=== PATIENT | female | born 1980 | race African-American/Black ===

== ENCOUNTER 2017-04-21 10:32 | Emergency (ER) | payer MEDICAID ==
[~2017-04-21] VITALS: Ht 162.6 cm; Wt 101.6 kg
[~2017-04-21 10:32] MED LIST: ALBUTEROL SULF8.5 GM INH; AZITHROMYCIN250 MG ORAL; BACTRIM DS TAB1 EAC1 ORAL; CEPHALEXIN500 MG ORAL; CYCLOBENZAPRINE10 MG ORAL; IBUPROFEN600 MG ORAL; NKM; NORCO 5-325 TA1 EACH ORAL; PROMETH-CODEIN 65 ML PO; PROMETHAZINE-C118 M1 ORAL; PSEUDOEPHEDRINE60 MG PO
[2017-04-21] MEDS ORDERED: NKM (10:47)
[2017-04-21 10:57] VITALS: BP 117/82
[2017-04-21] MEDS ORDERED: Ketorolac 30mg Inj IM ONE (11:00)
[2017-04-21] MEDS ORDERED: Cyclobenzaprine 10mg Tab ORAL ONE (11:00)
[2017-04-21 11:56] VITALS: BP 114/85
[2017-04-21] MEDS ORDERED: Norco 5mg/325mg tab ORAL ONE (12:00)
[2017-04-21] MEDS ORDERED: CYCLOBENZAPRINE10 MG ORAL (12:01)
[2017-04-21] MEDS ORDERED: NORCO 5-325 TA1 EACH ORAL (12:01)
[2017-04-21] MEDS ORDERED: IBUPROFEN600 MG ORAL (12:01)
[2017-04-21 12:13] VITALS: BP 114/85
--- NOTE | 2017-04-21 19:58 | Emergency Room Report ---
History of Present Illness General Chief Complaint: Neck Pain Source: Patient Present Illness HPI 37-year-old female presents ED complaining of neck pain and shoulder pain. States symptoms started 2 days ago. Notes pain to the left side of the neck radiating through the shoulder and her left shoulder blade. Pain is an 8/10, throbbing, nonradiating. Denies recent trauma but states that she often lifts heavy patients at work. No other aggravating relieving factors. Denies any other associated symptoms Allergies: Coded Allergies: No Known Allergies (Unverified , 07/12/14) Patient History Past Medical History: none Past Surgical History: none Pertinent Family History: none Social History: Denies: alcohol use, drug use, smoking Last Menstrual Period: "About 11 years." Has not had work-up. Now: No Immunizations: UTD Reviewed Nursing Documentation: PMH: Agreed, PSxH: Agreed Nursing Documentation-PMH Past Medical History: No Stated History Hx Cardiac Problems: No - NO MENSES FOR 11 YRS. NO WORK-UP DONE. Review of Systems All Other Systems: negative except mentioned in HPI Physical Exam Vital Signs Date Time Temp Pulse Resp B/P Pulse Ox O2 Delivery O2 Flow Rate FiO2 04/21/17 10:42 98.8 80 15 114/81 99 Room Air Sp02 EP Interpretation: reviewed, normal General Appearance: no apparent distress, alert, GCS 15, non-toxic, obese Head: normocephalic Eyes: bilateral eye PERRL, bilateral eye normal inspection ENT: hearing grossly normal, normal pharynx, no angioedema, normal voice Neck: no bony tend, tender lateral Respiratory: normal inspection Cardiovascular #1: normal inspection Gastrointestinal: normal inspection Rectal: deferred Genitourinary: no CVA tenderness Musculoskeletal: back normal, gait/station normal, normal range of motion, non- tender Neurologic: alert, oriented x3, responsive, motor strength/tone normal, sensory intact, speech normal Psychiatric: normal inspection Skin: normal inspection Lymphatic: normal inspection Medical Decision Making Diagnostic Impression: Primary Impression: Neck muscle strain Qualified Codes: S16.1XXA - Strain of muscle, fascia and tendon at neck level , initial encounter ER Course Hospital Course 37-year-old female presents ED complaining of left-sided neck pain and back pain. No trauma Differential diagnoses include: neck strain, shoulder strain, shoulder injury Clinical course Patient placed on stretcher. After initial history, physical exam reveals an obese female in no acute distress. There is no midline neck tenderness. There is some left-sided tenderness to the neck. Also pain noted behind the left shoulder blade. Full range of motion noted in the shoulder. I ordered toradol and flexeril and norco for pain. Upon reassessment patient states pain has improved. Diagnosis - neck muscle strain Stable and discharged to home with prescription for Motrin, [place], Flexeril. Followup with PMD. Return to ED if symptoms recur or worsen Last Vital Signs Date Time Temp Pulse Resp B/P Pulse Ox O2 Delivery O2 Flow Rate FiO2 04/21/17 12:14 98.6 04/21/17 12:13 81 18 114/85 98 Room Air Status: improved Disposition: HOME, SELF-CARE Condition: Stable Scripts Hydrocodone Bit/Acetaminophen 5-325* (NORCO 5-325*) 1 Each Tablet 1 TAB ORAL Q6H Y for For Pain, #10 TAB 0 Refills Prov: WIL SIMMONS M.D. 04/21/17 Cyclobenzaprine Hcl* (FLEXERIL*) 10 Mg Tablet 10 MG ORAL THREE TIMES A DAY, #20 TAB Prov: WIL SIMMONS M.D. 04/21/17 Ibuprofen* (MOTRIN*) 600 Mg Tablet 600 MG ORAL Q8H Y for For Pain, #30 TAB 0 Refills Prov: WIL SIMMONS M.D. 04/21/17 Departure Forms: Return to Work Return to Work Date: Apr 23, 2017 Work Restrictions: No Heavy Lifting Patient Instructions: Cervical Sprain, [id number] WIL SIMMONS M.D. Apr 21, 2017 19:58
== END 2017-04-21 12:14 | disposition home or self-care (01) ==
LOC: EMR 10:53
DX: S16.1XXA Strain of muscle, fascia and tendon at neck level, initial encounter (principal); X58.XXXA Exposure to other specified factors, initial encounter; Y92.9 Unspecified place or not applicable
CPT/HCPCS: 96372; 99284; J1885

== ENCOUNTER 2017-06-22 15:42 | Emergency (ER) | payer MEDICAID ==
[~2017-06-22] VITALS: Ht 162.6 cm; Wt 102.1 kg
[2017-06-22] MEDS ORDERED: KEFLEX500 MG ORAL (16:07)
[2017-06-22] MEDS ORDERED: BENADRYL25 M3 PO (16:07)
--- NOTE | 2017-06-22 16:08 | Emergency Room Report ---
History of Present Illness General Chief Complaint: Headache Source: Patient Present Illness [facility] This is a 37-year-old female who presented after increased headache. Patient gradual onset of symptoms. Patient reports having intermittent headaches on a regular basis. Patient denied any fever. She reports having some increased swelling to her right eye. She denies any fever. She denies any nasal discharge. The patient not noted to be diabetic. She denies any neck stiffness. She denied visual changes flashing lights or floaters. Allergies: Coded Allergies: No Known Allergies (Unverified , 07/12/14) Patient History Past Medical History: see triage record Reviewed Nursing Documentation: PMH: Agreed, PSxH: Agreed Nursing Documentation-PMH Past Medical History: No History, Except For Hx Cardiac Problems: No Hx Hypertension: No Hx Pacemaker: No Hx Asthma: No Hx COPD: No Hx Diabetes: No Hx Cancer: No Hx Gastrointestinal Problems: No Hx Dialysis: No History Of Psychiatric Problem: No Hx Neurological Problems: No Hx Cerebrovascular Accident: No Hx Seizures: No Review of Systems All Other Systems: negative except mentioned in HPI Physical Exam Vital Signs Date Time Temp Pulse Resp B/P (MAP) Pulse Ox O2 Delivery O2 Flow Rate FiO2 06/22/17 15:47 98.2 89 16 128/81 98 Room Air General Appearance: well appearing, no apparent distress, alert, GCS 15 Head: normocephalic, atraumatic Eyes: bilateral eye PERRL, bilateral eye other - upper right lid swelling, slight erythema, no purulent drainage ENT: hearing grossly normal, normal voice Neck: full range of motion, supple Respiratory: no respiratory distress, speaking full sentences Musculoskeletal: no calf tenderness Neurologic: normal gait Psychiatric: mood/affect normal Skin: no rash Medical Decision Making Diagnostic Impression: Primary Impression: Stye external ER Course Patient presented for eye pain. Differential diagnoses included was not limited to periorbital cellulitis, sinusitis, stye, tumor, glaucoma among others. Patient's benign exam and does not appear to require any further imaging or laboratory testing at this time. The patient appears to have a stye. Patient will be treated with oral antibiotics. Patient was advised followup with eye doctor in the next one to 2 days for recheck. Last Vital Signs Date Time Temp Pulse Resp B/P (MAP) Pulse Ox O2 Delivery O2 Flow Rate FiO2 06/22/17 15:47 98.2 89 16 128/81 98 Room Air Status: improved Disposition: HOME, SELF-CARE Condition: Stable Scripts Diphenhydramine HCl (Benadryl) 25 Mg Capsule 25 MG PO Q6HR, #20 CAP Prov: Wilman Rodgers 06/22/17 Cephalexin* (KEFLEX*) 500 Mg Capsule 500 MG ORAL Q6H, #28 CAP 0 Refills Prov: Wilman Rodgers 06/22/17 Referrals: NOT CHOSEN [facility]/,REFERRING (PCP) Wilman Rodgers Jun 22, 2017 16:08
[2017-06-22 16:25] VITALS: BP 120/85
== END 2017-06-22 16:25 | disposition home or self-care (01) ==
LOC: EMR 16:01
DX: H00.011 Hordeolum externum right upper eyelid (principal); R51 Headache
CPT/HCPCS: 99283

== ENCOUNTER 2018-07-06 20:30 | Emergency (ER) | payer MEDICAID ==
[~2018-07-06] VITALS: Ht 162.6 cm; Wt 104.3 kg
[~2018-07-06 20:30] MED LIST changes: +BENADRYL25 M3 PO; +KEFLEX500 MG ORAL
[2018-07-06 21:00] VITALS: BP 122/80
[2018-07-06] MEDS ORDERED: CLOTRIMAZOLE15 GM TOPIC (21:29)
[2018-07-06 21:37] VITALS: BP 122/80
--- NOTE | 2018-07-06 22:34 | Emergency Room Report ---
History of Present Illness General Chief Complaint: Vaginal Source: Patient Present Illness HPI 38-year-old female presents ED for evaluation area patient notes there is a rash in her inguinal area 1 month. States it is itchy. Denies pain. Denies any vaginal bleeding or discharge. Denies fevers or chills. Denies sick contacts or recent travel. No other aggravating relieving factors. Denies any other associated symptoms Allergies: Coded Allergies: No Known Allergies (Unverified , 07/12/14) Patient History Past Medical History: none Past Surgical History: none Pertinent Family History: none Social History: Denies: smoking, alcohol use, drug use Last Menstrual Period: 10 years ago Now: No Immunizations: UTD Reviewed Nursing Documentation: PMH: Agreed; PSxH: Agreed Nursing Documentation-PMH Past Medical History: No History, Except For Hx Cardiac Problems: No Hx Hypertension: No Hx Pacemaker: No Hx Asthma: No Hx COPD: No Hx Diabetes: No Hx Cancer: No Hx Gastrointestinal Problems: No - tubes tided 12 years ago Hx Dialysis: No Hx Neurological Problems: No Hx Cerebrovascular Accident: No Hx Seizures: No Review of Systems All Other Systems: negative except mentioned in HPI Physical Exam Vital Signs Date Time Temp Pulse Resp B/P (MAP) Pulse Ox O2 Delivery O2 Flow Rate FiO2 07/06/18 20:34 98.5 93 17 122/80 96 98.4 Sp02 EP Interpretation: reviewed, normal General Appearance: no apparent distress, alert, GCS 15, non-toxic Head: normocephalic Eyes: bilateral eye normal inspection, bilateral eye PERRL ENT: normal ENT inspection Neck: normal inspection Respiratory: normal inspection Cardiovascular #1: normal inspection Gastrointestinal: normal inspection Rectal: deferred Genitourinary: other - editorial director present. fungal rash noted adjacent to labial folds Musculoskeletal: normal inspection Neurologic: alert, oriented x3, responsive, motor strength/tone normal, sensory intact, speech normal Psychiatric: normal inspection Skin: normal inspection Lymphatic: normal inspection Medical Decision Making Diagnostic Impression: Primary Impression: Rash ER Course Hospital Course 38-year-old female presents to ED with rash to genital area Differential diagnoses include: Cellulitis, dermatitis, insect bite, abscess Clinical course Patient placed on stretcher. After initial history, physical exam reveals an obese female in no acute distress. Lieutenant Fire Fighter present. On exam there is evidence of a fungal rash noted adjacent labial folds. Likely related to moisture due to body habitus. Also in hair line where patient shaves discussed findings with patient. Safe for discharge with close outpatient follow-up. we will prescribe antifungal topical agent Diagnosis - rash stable and discharged to home with prescription for clotrimazole. keep area dry. Instructed to followup with PMD. Instructed return to ED if symptoms recur or worsen Last Vital Signs Date Time Temp Pulse Resp B/P (MAP) Pulse Ox O2 Delivery O2 Flow Rate FiO2 07/06/18 21:37 98.4 93 17 122/80 96 98.4 Status: improved Disposition: HOME, SELF-CARE Condition: Stable Scripts Clotrimazole* (LOTRIMIN*) 15 Gm Cream..g. 1 APPLIC TOPIC TWICE A DAY, #15 GM Prov: Vic Harper MD 07/06/18 Referrals: NOT CHOSEN IPA/,REFERRING (PCP) Patient Instructions: Skin Yeast Infection Vic Harper MD Jul 06, 2018 22:34
== END 2018-07-06 21:37 | disposition home or self-care (01) ==
LOC: EMR 20:45
DX: R21 Rash and other nonspecific skin eruption (principal)
CPT/HCPCS: 99283